=== PATIENT | female | born 1960 | race Two or more races ===

== ENCOUNTER → 2020-02-03 08:00 | Outpatient (CLI) | payer OTHER ==
[~2020-02-03] VITALS: Ht 157.5 cm; Wt 90.3 kg
[~2020-02-03 08:00] MED LIST: GABAPENTIN400 MG PO; NAPROXEN SODIU550 MG PO; SYNTHROID150 MCG PO; TARKA ER 2-2401 EACH PO; TRILEPTAL150 MG PO; ULTRAM50 MG PO
== END | disposition home or self-care (01) ==
LOC: LAB 08:00 → EDSTATUS 02-10 07:00 → SURH 02-10 07:00
PROVIDERS: ATTEND Obstetrics & Gynecology Gynecology
DX: D25.9 Leiomyoma of uterus, unspecified (principal); Z03.818 Encounter for observation for suspected exposure to other biological agents ruled out; D25.1 Intramural leiomyoma of uterus; N95.0 Postmenopausal bleeding; D64.89 Other specified anemias; E03.8 Other specified hypothyroidism; I10 Essential (primary) hypertension

== ENCOUNTER 2020-04-09 07:15 | Inpatient (IN) | payer OTHER ==
[~2020-04-09] VITALS: Ht 157.5 cm; Wt 88.9 kg
[2020-04-09] MEDS ORDERED: VITAMIN D31 ML PO (09:56)
[2020-04-16] MEDS ORDERED: LEVO-T112 MCG PO (09:27)
[2020-04-16] MEDS ORDERED: LEVO-T125 MCG PO (09:29)
[2020-04-16] MEDS ORDERED: GABAPENTIN800 M1 PO (09:30)
[2020-04-16] MEDS ORDERED: TRANDOLAPR-VER1 EAC3 (09:31)
[2020-04-16] MEDS ORDERED: TRANDOLAPR-VER1 EAC3 PO (09:31)
== END 2020-04-18 10:17 | disposition home or self-care (01) | DRG 741 ==
LOC: O/R 04-16 06:36 → OB/GYN 04-16 07:15
PROVIDERS: ADMIT Obstetrics & Gynecology Gynecologic Oncology; ATTEND Obstetrics & Gynecology Gynecologic Oncology
PROC: 0UT24ZZ Resection of Bilateral Ovaries, Percutaneous Endoscopic Approach (ICD-10-PCS; 2020-04-16)
PROC: 0UT74ZZ Resection of Bilateral Fallopian Tubes, Percutaneous Endoscopic Approach (ICD-10-PCS; 2020-04-16)
PROC: 07BC4ZX Excision of Pelvis Lymphatic, Percutaneous Endoscopic Approach, Diagnostic (ICD-10-PCS; 2020-04-16)
PROC: 0UT94ZZ Resection of Uterus, Percutaneous Endoscopic Approach (ICD-10-PCS; principal; 2020-04-16 08:30)
DX: C54.1 Malignant neoplasm of endometrium (principal); D36.0 Benign neoplasm of lymph nodes; I10 Essential (primary) hypertension; E03.8 Other specified hypothyroidism